=== PATIENT | female | born 1965 | race African-American/Black ===

== ENCOUNTER 2022-03-09 15:13 | Inpatient (IN) | payer MEDICARE, MEDICAID ==
[~2022-03-09] VITALS: Ht 160 cm; Wt 61.7 kg
[2022-03-09] MEDS ORDERED: IPRATROPIUM BROMIDE (0.02%) 0.5MG/2.5ML NEB HHN STA ×2 (16:38→20:22)
[2022-03-09] MEDS ORDERED: METHYLPREDNISOLONE SOD SUCC 125 MG/2 ML VIAL IV STA (16:38)
[2022-03-09] MEDS ORDERED: ALBUTEROL (0.083%) 2.5MG/3ML NEB HHN STA ×2 (16:38→20:22)
[2022-03-09] MEDS ORDERED: SODIUM CHLORIDE 0.9% 1,000 ML IV ONE (16:45)
[2022-03-09 17:17] LABS: CHLORIDE 104 mEq/L (98-107)
[2022-03-09 17:19] LABS: BASOPHILS % 0.5 % (0.0-2.0); EOSINOPHILS % 0.8 % (0.0-5.0); HEMATOCRIT. 50.1 % (36.0-48.0); HEMOGLOBIN. 15.7 g/dL (12.0-16.0); LYMPHOCYTES % 19.4 % (20.0-50.0); MEAN CORPUSCULAR HEMOGLOBIN 23.7 pg (28.0-32.0); MEAN CORPUSCULAR VOLUME 75.8 fL (81.0-99.0); MEAN PLATELET VOLUME 8.1 fl (7.4-10.4); NEUTROPHILS % 73.3 % (40.0-76.0); PLATELET 241 x1000/uL (130-400); RED BLOOD CELL COUNT 6.61 mill/uL (4.2-5.4); RED CELL DISTRIBUTION WIDTH 15.8 % (11.6-14.6)
[2022-03-09 17:26] LABS: ETHANOL BLOOD < 10 mg/dL
[2022-03-09] MEDS ORDERED: METHYLPREDNISOLONE SOD SUCC 125 MG/2 ML VIAL IV NR (18:35)
[2022-03-09] MEDS ORDERED: IPRATROPIUM BROMIDE (0.02%) 0.5MG/2.5ML NEB ONE ×2 (19:45→19:49)
[2022-03-09] MEDS ORDERED: ALBUTEROL (0.083%) 2.5MG/3ML NEB ONE (19:45)
[2022-03-09] MEDS ORDERED: AMLODIPINE 5MG TABLET PO NR (20:45)
[2022-03-10 01:27] LABS: CLARITY URINE CLEAR (CLEAR); COLOR URINE YELLOW (YELLOW); KETONES URINE NEGATIVE (NEGATIVE); LEUKOCYTE ESTERASE URINE 1+ (NEGATIVE); NITRITE URINE NEGATIVE (NEGATIVE); OCCULT BLOOD URINE NEGATIVE (NEGATIVE); PROTEIN URINE NEGATIVE (NEGATIVE); SPECIFIC GRAVITY URINE 1.013 (1.005-1.030)
[2022-03-10] MEDS ORDERED: IPRATROPIUM/ALBUTEROL 0.5-3(2.5)MG/3ML NEB HHN PRN ×2 (01:30→16:45)
[2022-03-10] MEDS ORDERED: ACETAMINOPHEN 325MG TABLET PO PRN (01:30)
[2022-03-10] MEDS ORDERED: HYDROCODONE/ACETAMINOPHEN 5/325MG TABLET PO PRN (01:30)
[2022-03-10 02:06] VITALS: BP 125/68
[2022-03-10 04:00] VITALS: BP 133/78
[2022-03-10] MEDS: METHYLPREDNISOLONE SOD SUCC 40 MG/ML VIAL IV SCH ×3 (06:17→22:21)
[2022-03-10 08:00] VITALS: BP_SYST 145; BP_SYST 160; BP_DIAS 84; BP_DIAS 98
[2022-03-10] MEDS ORDERED: BUDESONIDE 0.5MG/2ML NEB HHN SCH (09:00)
[2022-03-10 11:30] LABS: CHLORIDE 105 mEq/L (98-107); HEMATOCRIT. 45.5 % (36.0-48.0); HEMOGLOBIN. 13.9 g/dL (12.0-16.0); MEAN CORPUSCULAR VOLUME 75.1 fL (81.0-99.0); MEAN PLATELET VOLUME 7.7 fl (7.4-10.4); PLATELET 218 x1000/uL (130-400); RED BLOOD CELL COUNT 6.07 mill/uL (4.2-5.4); RED CELL DISTRIBUTION WIDTH 15.2 % (11.6-14.6)
[2022-03-10] MEDS ORDERED: ellipta inhaler INH (12:35)
[2022-03-10] MEDS ORDERED: proair inhaler INH (12:35)
[2022-03-10] MEDS ORDERED: trelegy inhaler (12:35)
[2022-03-10] MEDS ORDERED: FLOV44 INH (12:35)
[2022-03-10] MEDS ORDERED: flonase (12:35)
[2022-03-10] MEDS ORDERED: PANT40SU PO (12:35)
[2022-03-10] MEDS ORDERED: ROGAINE TOP (12:35)
[2022-03-10] MEDS ORDERED: NICOG PO (12:35)
[2022-03-10] MEDS: AMLODIPINE 10MG TABLET PO SCH (13:30)
[2022-03-10 14:06] LABS: PLATELET ESTIMATE NORMAL
[2022-03-10 17:20] LABS: BG BASE EXCESS 8.5 mmol/L (-2.0-2.0); BG CARBOXYHEMOGLOBIN 1.4 % (0.5-1.5); BG FRACTION INSPIRED OXYGEN 21; BG HCO3 ACT 36.1 mmol/L (22.0-26.0); BG METHEMOGLOBIN 0.2 % (0.0-1.5); BG OXYGEN SATURATION 88.8 % (92.0-98.5); BG OXYHEMOGLOBIN 87.4 % (94.0-97.0); BG PCO2 62.3 mmHg (35.0-45.0); BG PH 7.381 (7.350-7.450); BG SAMPLE SITE RIGHT BRACHIAL; BG TOTAL HEMOGLOBIN 15.1 g/dL (12.0-18.0); BG VENT MODE ROOM AIR
[2022-03-10] MEDS ORDERED: MOXI3DRO12 * (17:59)
[2022-03-10] MEDS ORDERED: PRED5DRO22 * (17:59)
[2022-03-10 20:00] VITALS: BP 127/82
[2022-03-10] MEDS: GUAIFENESIN 600MG ER TABLET PO SCH (21:20)
[2022-03-11] VITALS: BP 126/79
[2022-03-11 04:00] VITALS: BP 135/92
[2022-03-11] MEDS: METHYLPREDNISOLONE SOD SUCC 40 MG/ML VIAL IV SCH (06:04)
[2022-03-11 08:00] VITALS: BP 125/74
[2022-03-11] MEDS: IPRATROPIUM/ALBUTEROL 0.5-3(2.5)MG/3ML NEB HHN SCH ×2 (08:18→11:59)
[2022-03-11] MEDS: AMLODIPINE 10MG TABLET PO SCH (10:29)
[2022-03-11] MEDS: GUAIFENESIN 600MG ER TABLET PO SCH (10:29)
[2022-03-11] MEDS ORDERED: DORZOLAMIDE 2% OPHTH 10 ML BOTTLE LEFTEYE SCH (10:30)
[2022-03-11] MEDS ORDERED: PREDNISOLONE ACETATE 1% OPHTH DROPS 5ML LEFTEYE SCH (10:30)
[2022-03-11] MEDS ORDERED: P20 MT (11:11)
[2022-03-11 12:00] VITALS: BP 133/81
[2022-03-11 12:34] VITALS: BP 125/74
[2022-03-12] MEDS ORDERED: PREDNISONE 20MG TABLET PO SCH (09:00)
[2022-03-13] MEDS ORDERED: P20 MT (17:07)
== END 2022-03-11 17:29 | disposition home or self-care (01) | DRG 189 ==
LOC: ER 15:13 → MICUSO 21:45 → EDBEDREQ 21:48 → 6WST 23:56
PROVIDERS: ADMIT Internal Medicine; ATTEND Internal Medicine
DX: J96.01 Acute respiratory failure with hypoxia (principal); J45.901 Unspecified asthma with (acute) exacerbation; J44.1 Chronic obstructive pulmonary disease with (acute) exacerbation; J96.02 Acute respiratory failure with hypercapnia; D75.1 Secondary polycythemia; F17.210 Nicotine dependence, cigarettes, uncomplicated; I16.0 Hypertensive urgency; I10 Essential (primary) hypertension; F12.90 Cannabis use, unspecified, uncomplicated; Z20.822 Contact with and (suspected) exposure to COVID-19; Z79.899 Other long term (current) drug therapy; Z71.6 Tobacco abuse counseling; Z71.51 Drug abuse counseling and surveillance of drug abuser
CPT/HCPCS: 36415; 36600; 71045; 80048; 80053; 80320; 81003; 82375; 82805; 83880; 84484; 85025; 87426; 93005; 94640; 99291; C9803; J2920; J2930; J7030; J7626; G0480